=== PATIENT | female | born 1970 | race Caucasian/White ===

== ENCOUNTER 2018-05-07 17:07 | Emergency (ER) | payer BC ==
[2018-05-07 17:12] VITALS: BP 124/85
== END 2018-05-07 18:59 | disposition left against medical advice (07) ==
LOC: ED 17:07
DX: R07.9 Chest pain, unspecified (principal); R03.0 Elevated blood-pressure reading, without diagnosis of hypertension; R11.0 Nausea; Z53.21 Procedure and treatment not carried out due to patient leaving prior to being seen by health care provider
CPT/HCPCS: 93005

== ENCOUNTER 2021-01-16 10:12 | Observation (INO) ==
[2021-01-16 10:50] LABS: ABS Basophils 0.1 10^3/ul (0-0.2); ABS Eosinophils 0.5 10^3/ul (0-0.6); ABS Lymphocytes 1.8 10^3/ul (1.0-4.8); ABS Monocytes 0.6 10^3/ul (0-0.8); ABS Neutrophils 4.9 10^3/ul (1.5-7.7); Hematocrit 43 % (35-47); Hemoglobin 14.6 g/dL (12.0-16.0); Lymphocyte % 23.4 %; Mean Corpuscular HGB Conc 34 g/dL (31-36); Mean Corpuscular Hemoglobin 30 pg (27-31); Mean Corpuscular Volume 87 fL (80-97); Mean Platelet Volume 7.8 fL (7.4-10.4); Nucleated Red Blood Cells % 0.1; Platelet Count 283 10^3/uL (150-450); Red Blood Count 4.93 10^6 /uL (3.70-4.87); Red Cell Distribution Width 14 % (10-15); White Blood Count 7.9 10^3/uL (3.5-10.8)
[2021-01-16 10:55] LABS: INR 1.16 (0.82-1.09)
[2021-01-16 11:14] LABS: Albumin/Globulin Ratio 1.1 (1-3); Calcium 9.1 mg/dL (8.6-10.3); EGFR African American 92.8 (>60); EGFR Non-African American 76.7 (>60); Globulin 3.6 g/dL (2-4); Total Bilirubin 0.6 mg/dL (0.2-1.0); Total Protein 7.6 g/dL (6.4-8.9)
[2021-01-16 13:14] LABS: Magnesium 1.9 mg/dL (1.9-2.7)
[2021-01-16 13:23] LABS: TSH Ultra Thyroid Stim Horm 3.22 mcIU/mL (0.34-5.60)
[2021-01-16] MEDS ORDERED: Enoxaparin 40 MG/0.4 ML SYR SUBCUT SCH (16:00)
[2021-01-16] MEDS ORDERED: Progesterone 100 mg CAP (NF) PO SCH (21:00)
[2021-01-17 06:59] LABS: HDL Cholesterol 35.7 mg/dL
[2021-01-17] MEDS ORDERED: Perflutren Lipid Microsphere 3 ML VIAL ONE (08:01)
[2021-01-17] MEDS ORDERED: Aspirin EC 81 mg TAB.EC (enteric coated) PO SCH (09:00)
[2021-01-17 11:29] VITALS: BP 118/67
== END 2021-01-17 13:20 | disposition home or self-care (01) ==
LOC: ED 10:12 → MEDTELE 10:12
PROVIDERS: ADMIT Internal Medicine; ATTEND Internal Medicine